=== PATIENT | male | born 1975 | race Caucasian/White ===

== ENCOUNTER 2018-04-03 11:42 | Emergency (ER) | payer BC ==
[2018-04-03] MEDS: TETRACAINE 0.5% OPHTH SOLN 4ML OS (12:40)
[2018-04-03] MEDS: ADACEL/BOOSTRIX VACCINE (DIPHTH/PERTUSS/ACELL/TETANUS)0.5ML SYR (90715) IM (12:40)
== END 2018-04-03 13:45 | disposition home or self-care (01) ==
LOC: M ED 11:42
DX: S05.02XA Injury of conjunctiva and corneal abrasion without foreign body, left eye, initial encounter (principal); X58.XXXA Exposure to other specified factors, initial encounter; Y92.099 Unspecified place in other non-institutional residence as the place of occurrence of the external cause; Y93.9 Activity, unspecified; Y99.9 Unspecified external cause status; Z79.899 Other long term (current) drug therapy; Z88.0 Allergy status to penicillin
CPT/HCPCS: 90715